=== PATIENT | female | born 1980 | race Asian ===

== ENCOUNTER 2017-04-01 14:37 | Emergency (ER) | payer OTHER ==
--- NOTE | 2017-04-01 16:07 | ED Physician Documentation ---
History of Present Illness - Stated complaint Stated Complaint: LT FOOT SWELLING - Chief complaint Chief Complaint: Ext Problem - Additonal information Additional information: hx from pt 37 female last crhistmas she developed L 2nd and 3rd toe pain after wearing tight heels since then has periodically had recurring toe pain today again but severe burning and some swelling too Review of Systems Constitutional: denies: Fever, Chills Musculoskeletal: reports: Extremity pain PD PAST MEDICAL HISTORY - Past Medical History Past Medical History: Yes Cardiovascular: Hypertension Other Past Medical History: Mellulary sponge kidneys - Past Surgical History Past Surgical History: No - Present Medications Home Medications: Ambulatory Orders Medication Instructions Recorded Confirmed Telmisartan [Micardis] 40 mg PO DAILY 08/13/14 04/01/17 Hydrochlorothiazide 12.5 mg PO DAILY 04/01/17 04/01/17 - Allergies Allergies/Adverse Reactions: Allergies Allergy/AdvReac Type Severity Reaction Status Date / Time No Known Drug Allergies Allergy Verified 04/01/17 14:44 - Social History Does the pt smoke?: No Smoking Status: Never smoker Does the pt drink ETOH?: No Does the pt have substance abuse?: No - Immunizations Immunizations are current?: Yes - POLST Patient has POLST: No PD ED PE NORMAL - Vitals Vital signs reviewed: Yes - Extremities Extremities: Other (L foot no deformity, TTP between MT heads 2 and 3, also TTP plantar aspect MT heads 2 and 3, no erythema or warmth) Results - Vitals Vitals: Vital Signs - 24 hr 04/01/17 14:40 Temperature 36.3 C L Heart Rate 82 Respiratory 16 Rate Blood Pressure 159/103 H O2 Saturation 98 Oxygen O2 Source Room air PD MEDICAL DECISION MAKING - ED course ED course: could be mackenzie neurmo or metarsalgia will xray to rule stress fx or foot def likely trial course steroids which would relieve nerve pain and refer to podiatry etiology unclear still but do not feel life or limp threatening and can be deferred to outpt wup Departure - Departure Disposition: 01 Home, Self Care Clinical Impression: Foot pain Qualifiers: Laterality: left Qualified Code(s): M79.672 - Pain in left foot Condition: Good Instructions: Metatarsalgia, Neuromas Foot Follow-Up: Alphonso Wyman MD [Primary Care Provider] - (for a referral to podiatry) Comments: The xray was fine - no stress fracture and no collapse/displacement of the metatarsal heads I suspect the pain is either due to nerve inflammation between the foot bones called a mortons neuroma, or (as you suspected) metatarsalgia I have prescribed short course of steroids which often relieves pain due to nerve inflammation. And I recommend you wear flat shoes with a loose toe-box and use an insert with a metatarsal bar which help support and spread the foot bone - this can be ordered from [employer]. High heels will aggravate the pain Then please follow up with your PMD for a referral to podiatry for further evaluation and management And please get your blood pressure rechecked - it was high today
--- NOTE | 2017-04-01 16:28 | XRAY Preliminary Report ---
Exam: XR FOOT 3 VIEW LT IMPRESSION: No fracture or subluxation. [facility] SITE ID: [id number]
--- NOTE | 2017-04-01 16:31 | XRAY Report ---
EXAM: LEFT FOOT RADIOGRAPHY EXAM DATE: 04/01/2017 03:13 PM. CLINICAL HISTORY: Pain head 2nd 3rd MT. COMPARISON: None. TECHNIQUE: 3 views. FINDINGS: Bones: Normal. No fractures or bone lesions. Joints: Normal. No subluxations. Soft Tissues: There is a small plantar calcaneal spur. IMPRESSION: No fracture or subluxation. [facility] Referring Provider Line: [phone] SITE ID: [id number]
[2017-04-01 17:02] VITALS: BP 164/107
[2017-04-01] MEDS ORDERED: predniSONE 20 MG TABLET PO STA (17:02)
[2017-04-01] MEDS ORDERED: predniSONE 20 MG TABLET ONE (17:09)
== END 2017-04-01 17:17 | disposition home or self-care (01) ==
LOC: ED 14:37
DX: M79.672 Pain in left foot (principal); I10 Essential (primary) hypertension; Q61.5 Medullary cystic kidney
CPT/HCPCS: 73630; 99283; J7512